=== PATIENT | male | born 1960 | race Caucasian/White ===

== ENCOUNTER → 2023-07-09 11:18 | Outpatient (REF) | payer OTHER, SELFPAY | LOC: HWCARD 11:18 | PROVIDERS: ATTENDING PHYSICIAN Pain Medicine Interventional Pain Medicine; FAMILY PHYSICIAN Family Medicine | DX: Z01.818 Encounter for other preprocedural examination (principal) | CPT/HCPCS: 93005 ==

== ENCOUNTER → 2023-07-22 08:43 | Outpatient (REF) | payer OTHER, SELFPAY | LOC: HWRAD 08:43 | PROVIDERS: ATTENDING PHYSICIAN Family Medicine | DX: N28.1 Cyst of kidney, acquired (principal) | CPT/HCPCS: 76775 ==

== ENCOUNTER 2025-03-20 05:09 | Emergency (ER) | payer OTHER, SELFPAY ==
[2025-03-20] VITALS (14 sets, daily range): BP systolic 130–178; BP diastolic 76–106; PULSE 70–90; O2SAT 98; BMI 34.3
[2025-03-20 05:28] LABS: Glucose - Point of Care 97 mg/dl (70-99)
[2025-03-20 05:52] LABS: Hematocrit 42.6 % (39.0-52.0); Hemoglobin 14.2 g/dL (13.0-18.0); Mean Corp Hgb Conc. 33.3 g/dL (33.0-37.0); Mean Corpuscular Volume 91.0 fL (80.0-94.0); Nucleated Red Blood Cells % 0 % (-); Platelet Count 241 10^3/uL (130-400); Red Cell Dist. Width 13.8 % (11.5-14.5)
[2025-03-20 06:06] LABS: Blood Urea Nitrogen 19 mg/dl (9-20); Calcium 9.6 mg/dl (8.4-10.2); Carbon Dioxide 27 mmol/L (22-30); Chloride 102 mmol/L (98-107); Glucose 99 mg/dl (70-99); Sodium 132 mmol/L (135-145); eGFR > 60.00
[2025-03-20 06:17] LABS: Troponin I 0.017 ng/ml
--- NOTE | 2025-03-20 06:23 | ED.GENMED ---
History of Present Illness
General
Chief Complaint: Dizziness
Source: patient and spouse
Exam Limitations: none
Time Seen by Provider: 03/20/25 06:01
Nursing documentation reviewed up to this point in time: agreed with
History of Present Illness
History of Present Illness:
65-year-old male with past medical history of hypertension, hyperlipidemia who presents to the emergency department for evaluation of dizziness. Patient reports 2 episodes over the past 48 hours�1 episode yesterday morning when he rolled over in
bed. This morning he got up and walked to the bathroom and when he went back into bed and rolled over again had an episode. He describes a severe room spinning sensation associated with diaphoresis and nausea. He says that yesterday's episode
lasted about 30 seconds today lasted about a minute. Symptoms have resolved here in the ER aside from some residual mild lightheadedness. He says that today he had some mild associated arm paresthesias but no chest pain or palpitations. Denies
any focal weakness or numbness in the extremities. He denies any change in his vision or speech. He says that he did have 'swollen glands' a few weeks ago for which he took a course of antibiotics but no recent cough, congestion. He says maybe a
mild sore throat this morning. He states he has had some mild neck pain for the past few months no acute change. He does have a mild headache this morning. He denies any other acute symptoms. He says he has never had similar symptoms in the past.
Review of Systems
Review of Systems
All Other Systems: ROS reviewed and negative except as documented in HPI and ROS
Constitutional: Denies fever
EENT: Reports sore throat; Denies runny nose
Respiratory: Denies cough or trouble breathing
Cardiac: Reports diaphoresis; Denies chest pain
ABD/GI: Reports nausea; Denies abdominal pain or vomiting
: Denies flank pain
Neurological: Reports dizzy and headache; Denies weakness or numbness
Phy Exam
Physical Exam
Physical Exam:
General: Awake, alert, oriented x3; no acute distress
Head: Normocephalic, atraumatic
Eyes: Conjunctiva normal, EOMI without nystagmus, pupils equal round and reactive to light bilaterally
Ears: Canals small amount of cerumen but no impaction, TMs clear bilaterally; positive Kinga-Hallpike towards the right
Throat: Airway intact, handling secretions
Neck: Trachea midline, supple without meningismus
Lungs: Clear to auscultation bilaterally, no wheezing, rales, rhonchi
Heart: Regular rate and rhythm, no murmurs, gallops, or rubs
Abd: Soft, non distended, nontender
Neuro: Cranial nerves intact 2 through 12, speech fluid without dysarthria or aphasia, no limb ataxia, motor and sensory intact in all extremities
Skin: Warm and well-perfused
Extremities: No edema in extremities, equal pulses in all extremities
Scores
NIH Stroke Score
Level of Consciousness: 0 - Alert
LOC Questions: 0-Answers both correctly
LOC Commands: 0-Performs both correctly
Best Horizontal Gaze: 0-Normal
Visual Levine: 0=Normal, no visual loss
Facial Palsy: 0=Normal, symmetrical
Motor - Right Arm: 0=No drift 10 seconds
Motor - Left Arm: 0=No drift 10 seconds
Motor - Right Le-No drift 5 seconds
Motor - Left Le-No drift 5 seconds
Limb Ataxia: 0-Absent
Sensation: 0-Normal
Best Language: 0-No aphasia
Dysarthria: 0-Normal
Extinction and Inattention: 0-No abnormality
NIH Total Score:: 0
Heart Failure Risk
Heart Failure Risk Score: Not Applicable
Heart Score for Chest Pain Patients
STEMI patient?: Not applicable
Withdrawal Assessment of Alcohol
Withdrawal Assessment Completed?: Not applicable
Course
Orders/Labs/Results
Orders:
Orders
03/20/25 05:14
Electrocardiogram (*1) Urgent
Reason for Study: Chest Pain
Cardiac Monitoring- Treatment ONCE
EKG- Treatment ONCE
IV Insert/Care/Rem.- Treatment PRN
O2 Therapy [RESP] Urgent
Titrate/Wean O2 to maintain O2 sat greater than (%): 90
Special Instructions: Maintain sats >/=90%
Pulse Ox/spot Check [RESP] Urgent
Quantity: 1
Special Instructions: ON ROOM AIR
03/20/25 05:45
Basic Metabolic Panel Urgent
Complete Blood Count/With Diff Urgent
Troponin I Urgent
03/20/25 06:19
CT Head & Neck Angio W/wo IV Urgent
Comment:
Reason For Exam: headache, neck pain, vertigo
03/20/25 06:20
0.9% Sodium Chloride 1000 ml [Nss] 1,000 ml IV BOLUS
Pt Eval And Treat Urgent
Treatment: vertigo--Mamie
Activity Level: With Assistance
03/20/25 08:52
Troponin I Urgent
03/20/25 10:44
diazePAM [Valium Injection] 2 mg IV NOW STA
Abnormal Lab Results
03/20/25
05:45
RBC 4.68 L 10^6/uL
(4.70-6.10)
Absolute Monos (auto) 0.7 H 10^3/uL
(0.1-0.6)
Sodium 132 L mmol/L
(135-145)
03/20/25 05:45
03/20/25 05:45
Vital Signs
Initial and Last Documented VS:
Initial Vital Signs
Temp Pulse Resp BP Pulse Ox
36.3 C 74 20 178/96 98
03/20/25 05:12 03/20/25 05:12 03/20/25 05:12 03/20/25 05:12 03/20/25 05:12
Last Documented Vital Signs
Temp Pulse Resp BP Pulse Ox
36.3 C 71 18 158/96 98
03/20/25 05:12 03/20/25 11:18 03/20/25 11:18 03/20/25 11:18 03/20/25 08:12
MDM/Problems Addressed
Differential Diagnosis Includes:
Suspect peripheral vertigo differential includes BPPV, labyrinthitis, eustachian tube dysfunction; less likely central vertigo including stroke or dissection, brain mass
MDM/Problems Addressed:
65-year-old male presents for evaluation of vertigo x 2 episodes with positional trigger over the past 2 days. Thankfully episode this morning only lasted for about a minute. He did have associated nausea and diaphoresis. He does have headache
and neck pain this morning although it sounds like neck pain is more of a chronic issue. Hypertensive in triage but vital signs normalized by my assessment. Physical exam is as above�notably although his initial neurologic exam was normal he had a
positive Kinga-Hallpike. Overall symptoms seem most consistent with peripheral vertigo. He says he does have a mild sore throat this morning�could be a viral illness as trigger for symptoms. Given his age with no prior history and complaint of
persistent headache and neck pain will check CT head and neck to rule out acute vascular issue. Labs in triage were unremarkable including initial negative troponin�with nausea and diaphoresis can trend troponin for completeness but low suspicion
that this is a cardiac event. His EKG showed no acute ischemia with sinus rhythm. Consult with PT for vertigo assessment. Treat symptomatically as needed. Reassess after the above.
CTA head and neck negative for any acute abnormality. His repeat troponin was negative and again very low clinical suspicion that this is cardiac. Discussed with PT for vertigo assessment as his clinical picture is most consistent with peripheral
vertigo.
Patient actually feeling much better after Mamie maneuver with physical therapist here. Up and ambulatory without assistance. I had a long discussion with the patient, at this point stable for discharge will refer to ENT for outpatient follow-up,
meclizine as needed for breakthrough symptoms. He has a prescription for physical therapy for outpatient treatment. Patient comfortable with this plan. I did give precautions about rapid movements and being cautious with positional change. All
questions answered.
Acute Exacerbation and/or Progression of Chronic Illness:
Acutely hypertensive, improved without intervention continue to monitor but no additional antihypertensives
Acute Exacerbation and/or Progression of Chronic Illness: HTN
*Radiology
Radiology exam reviewed: radiology read reviewed
*Pulse Oximetry
SaO2: 98
Oxygen Mode of Delivery: Room air
Patient hypoxic: no (98%)
*EKG
Interpreted by ED Provider?: Yes
Heart Rate: 67
Rate: normal
Rhythm: sinus
Elton: normal axis
Interval: normal interval
QRS Pattern: normal QRS
Ischemia: no ischemia
*Critical Care Note
Total Time (30-74mins, 75-104mins- exclusive of procedures): Not Applicable
Data Reviewed
Source: patient and spouse
ED Attending Note
-
Portions of this chart may have been created with voice recognition software.� Occasional wrong word or��sound alike� substitutions may have occurred due to the inherent limitations of voice recognition software.
Discharge Plan
Departure
Patient Disposition: Home (Routine Discharge)
Date of Disposition: 03/20/25
Time of Disposition: 12:19
Patient with high blood pressure during this ER visit?: Yes
Discharge Problem:
Vertigo
Instructions: Vertigo (a type of dizziness)
Prescriptions:
New
meclizine 25 mg tablet
25 mg PO BID PRN (Reason: dizziness) Qty: 20 0RF
No Action
oxycodone 5 MG tablet
5 mg PO Q4HPRN PRN (Reason: breakthrough/severe pain) Qty: 10 0RF
Referrals:
Paulo Bundy DO [Family Provider, Family Practice]
Tyrell Murrieta MD [Active, ENT] - Call in 1-3 days for appt
Referral Note: ENT
Activity Restrictions/Additional Instructions:
Thank you for visiting the Emergency Department at [facility].
1. Please schedule a follow up appointment as directed. Call first thing tomorrow morning to make an appointment.
2. If indicated, please take your medications as instructed and indicated on discharge paperwork.
3. If any of your symptoms do not improve, or persist, or become more severe within 6-12 hours, please return to the emergency department for further care.
4. Please return to the emergency department if you develop a headache, neck pain/stiffness, fever greater than 100.4F, chest pain, shortness of breath, persistent nausea, vomiting, slurred speech, difficulty walking, numbness/tingling, weakness,
signs of infection or any other symptoms that are worrisome to you.
Please call [phone] if you have any questions.
Interventions
Interventions:
*Risk Screen - Suicide Last Done: 03/20/25 05:12
*General Assessment Last Done: 03/20/25 05:48
*Neglect/Abuse Screening Last Done: 03/20/25 05:12
*ED- Fall Risk Assessment Last Done: 03/20/25 05:48
*ED COVID-19 Vaccine History Last Done: 03/20/25 05:48
*ED Influenza Vaccine History Last Done: 03/20/25 05:48
ED- Neurological Assessment Last Done: 03/20/25 05:48
Discharge Date and Time
Print Language: KHMER
[2025-03-20] MEDS: NSS 1000 IV (06:26)
[2025-03-20 09:24] LABS: Troponin I 0.014 ng/ml
[2025-03-20] MEDS: VALIUM INJECTION 2 MG IV (10:48)
== END 2025-03-20 12:47 | disposition home or self-care (01) ==
LOC: EMR 05:09
PROVIDERS: Student in an Organized Health Care Education/Training Program; EMERGENCY PHYSICIAN Emergency Medicine; FAMILY PHYSICIAN Family Medicine
DX: R42 Dizziness and giddiness (principal); I10 Essential (primary) hypertension; E78.5 Hyperlipidemia, unspecified
CPT/HCPCS: 99284; 96374; 70496; 70498; 80048; 82962; 84484; 85025; 93005; 97112; 97530; Q9967